=== PATIENT | female | born 1935 | race Caucasian/White ===

== ENCOUNTER → 2017-01-12 | Outpatient (CLI) | payer MEDICARE, OTHER | LOC: RAD 13:53 | DX: M25.511 Pain in right shoulder (principal); M79.621 Pain in right upper arm | CPT/HCPCS: 73030; 73060 ==

== ENCOUNTER 2021-02-13 22:52 | Inpatient (IN) | payer MEDICARE, OTHER ==
[~2021-02-13] VITALS: Ht 172.7 cm; Wt 96.2 kg
[~2021-02-13 22:52] MED LIST: AMMONIUM LACTA140 GM TP; ANTIVERT 12.512.5 MG PO; CEFDINIR300 MG PO; CYMBALTA60 MG PO; DURAGESIC 25 MCG1 EA TD; FOSAMAX70 MG PO; FUROSEMIDE20 MG PO; HYDROCHLOROTHIA25 MG PO; IRBESARTAN150 MG PO; IRBESARTAN300 MG PO; K-DUR TAB 20 M20 MEQ PO; KLONOPIN TAB 00.5 MG PO; KLONOPIN0.5 MG PO; LEVOTHYROXINE25 MCG PO; LIPITOR TAB 2020 MG PO; LOPRESSOR 25 MG25 MG PO; LOPRESSOR50 MG PO; MECLIZINE HCL25 MG PO; NORCO 10-325 T1 EACH PO; NORVASC 5 MG TAB5 MG PO; POLYOX WSR-3011 GM MC; PRIMIDONE50 MG PO; PROTONIX 40 MG40 M1 PO; TRAMADOL HCL50 MG PO; TYLENOL 500 MG500 MG PO; VOLTAREN ARTHRI20 GM TP; VOLTAREN100 GM TP; WARFARIN SODIUM3 MG PO; XALATAN OP SOL2.5 ML OU; ZOFRAN ODT 4 MG4 MG PO
[2021-02-14 00:24] LABS: HEMOGLOBIN 13.8 gm/dl (12.3-15.3); RED BLOOD COUNT 4.18 M/UL (4.00-5.10)
[2021-02-14 00:47] LABS: BUN/CREATININE RATIO 15 (0-10)
[2021-02-14] MEDS ORDERED: ICAPS MV TABLE1 EACH PO (05:09)
[2021-02-14] MEDS ORDERED: FERREX 150150 MG PO (05:11)
[2021-02-14] MEDS ORDERED: ANTACID SUSPEN355 M1 PO (05:14)
[2021-02-14] MEDS ORDERED: BISACODYL10 MG PR (05:15)
[2021-02-14] MEDS ORDERED: HYDROCODON-ACE1 EAC4 PO (05:16)
[2021-02-14 11:33] LABS: HEMOGLOBIN 13.8 gm/dl (12.3-15.3); RED BLOOD COUNT 4.15 M/UL (4.00-5.10); WHITE BLOOD COUNT 8.7 K/UL (4.5-11.0)
[2021-02-15 01:30] LABS: HEMOGLOBIN 13.9 gm/dl (12.3-15.3); RED BLOOD COUNT 4.25 M/UL (4.00-5.10); WHITE BLOOD COUNT 9.1 K/UL (4.5-11.0)
--- NOTE | 2021-02-15 07:43 | NUR ---
received call from dr. de los santos asking why heparin was discontinued within the 4 hour frame per surgery protocol. informed dr. tejada that when evening nurse received call patient is going to be pickup for surgery evening nurse discontinued heparin. read to him of the nursing communication ordered r/t heparin and received order that he will cancel surgery today.
--- NOTE | 2021-02-15 08:00 | NUR ---
informed family member who was on the floor of the cancelled surgery and will be reschedule tommorrow-acknowledged
--- NOTE | 2021-02-15 08:02 | NUR ---
received call from my watch manufacturing supervisor- karina tejada and informed of the episode that led to cancellation of the surgery today. she acknowledged
--- NOTE | 2021-02-15 14:51 | NUR ---
reported to dr. austin earlier of patient complaining of almendarez catheter and color of urine, dark and bloody looking. will order for u/a
--- NOTE | 2021-02-15 17:10 | NUR ---
notified dr. austin r/t ptthp and that heparin was stopped per heparin protocol, and ptthp will be redrawn per protocol- acknowledged
[2021-02-16 04:17] LABS: WHITE BLOOD COUNT 7.6 K/UL (4.5-11.0)
[2021-02-16 04:22] LABS: RED BLOOD COUNT 3.68 M/UL (4.00-5.10)
--- NOTE | 2021-02-16 10:22 | NUR ---
patient heart rate increase to 120's-140's and episode of 150's administered patient am dose of metroprolol 12.5mg.
--- NOTE | 2021-02-16 15:53 | NUR ---
Report given to admitting nurse at ICU
[2021-02-17 02:49] LABS: HEMOGLOBIN 12.8 gm/dl (12.3-15.3); RED BLOOD COUNT 3.9 M/UL (4.00-5.10)
[2021-02-17 02:59] LABS: WHITE BLOOD COUNT 10.1 K/UL (4.5-11.0)
[2021-02-18 02:54] LABS: WHITE BLOOD COUNT 12.2 K/UL (4.5-11.0)
[2021-02-18 02:58] LABS: HEMOGLOBIN 10.4 gm/dl (12.3-15.3); RED BLOOD COUNT 3.23 M/UL (4.00-5.10)
[2021-02-18 03:37] LABS: BUN/CREATININE RATIO 20 (0-10)
[2021-02-18 19:10] LABS: HEMOGLOBIN 9.6 gm/dl (12.3-15.3); RED BLOOD COUNT 2.93 M/UL (4.00-5.10); WHITE BLOOD COUNT 9.7 K/UL (4.5-11.0)
[2021-02-19 03:07] LABS: HEMOGLOBIN 8.9 gm/dl (12.3-15.3); RED BLOOD COUNT 2.75 M/UL (4.00-5.10); WHITE BLOOD COUNT 8.7 K/UL (4.5-11.0)
[2021-02-19 19:12] LABS: 25-HYDROXY, VITAMIN D-2 3.8 ng/mL (.)
[2021-02-20 03:58] LABS: RED BLOOD COUNT 2.8 M/UL (4.00-5.10); WHITE BLOOD COUNT 7.7 K/UL (4.5-11.0)
[2021-02-21 05:35] LABS: RED BLOOD COUNT 2.8 M/UL (4.00-5.10)
[2021-02-21 05:36] LABS: WHITE BLOOD COUNT 10.9 K/UL (4.5-11.0)
[2021-02-22 05:29] LABS: RED BLOOD COUNT 2.7 M/UL (4.00-5.10); WHITE BLOOD COUNT 11.5 K/UL (4.5-11.0)
[2021-02-23 05:05] LABS: HEMOGLOBIN 9.1 gm/dl (12.3-15.3); RED BLOOD COUNT 2.88 M/UL (4.00-5.10); WHITE BLOOD COUNT 12.2 K/UL (4.5-11.0)
[2021-02-24 07:49] LABS: HEMOGLOBIN 10.3 gm/dl (12.3-15.3); WHITE BLOOD COUNT 14.3 K/UL (4.5-11.0)
[2021-02-24 07:54] LABS: RED BLOOD COUNT 3.2 M/UL (4.00-5.10)
[2021-02-25 05:39] LABS: HEMOGLOBIN 9.4 gm/dl (12.3-15.3); RED BLOOD COUNT 2.97 M/UL (4.00-5.10); WHITE BLOOD COUNT 13.6 K/UL (4.5-11.0)
[2021-02-26 07:56] LABS: HEMOGLOBIN 9.5 gm/dl (12.3-15.3); RED BLOOD COUNT 3.04 M/UL (4.00-5.10); WHITE BLOOD COUNT 13.4 K/UL (4.5-11.0)
[2021-02-26] MEDS ORDERED: ELIQUIS2.5 MG PO (11:38)
[2021-02-26] MEDS ORDERED: MYCOSTATIN POWD15 GM TOP (11:39)
[2021-02-26] MEDS ORDERED: OXYCODONE HCL5 MG PO (11:40)
== END 2021-02-26 16:06 | DRG 521 ==
LOC: ER1 22:52 → CDU 02-14 01:27 → CCU 02-14 01:27 → M/S 02-14 01:27 → CCU 02-16 15:37 → M/S 02-22 17:34
PROVIDERS: Family Medicine; Internal Medicine; Internal Medicine Cardiovascular Disease; Internal Medicine Pulmonary Disease; Nurse Practitioner Family; Orthopaedic Surgery; Physician Assistant; Physician Assistant Medical; ADMIT Internal Medicine
PROC: B24BZZZ Ultrasonography of Heart with Aorta (ICD-10-PCS; 2021-02-14)
PROC: 0SRS0J9 Replacement of Left Hip Joint, Femoral Surface with Synthetic Substitute, Cemented, Open Approach (ICD-10-PCS; principal; 2021-02-16 14:45)
PROC: 0B978ZZ Drainage of Left Main Bronchus, Via Natural or Artificial Opening Endoscopic (ICD-10-PCS; 2021-02-19)
PROC: 0B938ZZ Drainage of Right Main Bronchus, Via Natural or Artificial Opening Endoscopic (ICD-10-PCS; 2021-02-19)
PROC: 5A09357 Assistance with Respiratory Ventilation, Less than 24 Consecutive Hours, Continuous Positive Airway Pressure (ICD-10-PCS; 2021-02-22)
DX: S72.012A Unspecified intracapsular fracture of left femur, initial encounter for closed fracture (principal); J96.22 Acute and chronic respiratory failure with hypercapnia; J96.21 Acute and chronic respiratory failure with hypoxia; J69.0 Pneumonitis due to inhalation of food and vomit; I48.20 Chronic atrial fibrillation, unspecified; I50.32 Chronic diastolic (congestive) heart failure; E66.2 Morbid (severe) obesity with alveolar hypoventilation; M81.0 Age-related osteoporosis without current pathological fracture; M19.90 Unspecified osteoarthritis, unspecified site; I11.0 Hypertensive heart disease with heart failure; R25.1 Tremor, unspecified; F41.9 Anxiety disorder, unspecified; F32.9 Major depressive disorder, single episode, unspecified; E78.5 Hyperlipidemia, unspecified; E03.9 Hypothyroidism, unspecified; Z20.822 Contact with and (suspected) exposure to COVID-19; W01.0XXA Fall on same level from slipping, tripping and stumbling without subsequent striking against object, initial encounter; G89.4 Chronic pain syndrome; J44.9 Chronic obstructive pulmonary disease, unspecified; B96.1 Klebsiella pneumoniae [K. pneumoniae] as the cause of diseases classified elsewhere; Y93.89 Activity, other specified; Y92.122 Bedroom in nursing home as the place of occurrence of the external cause; Z79.01 Long term (current) use of anticoagulants; Z91.81 History of falling; Z99.81 Dependence on supplemental oxygen; Z85.3 Personal history of malignant neoplasm of breast; Z90.710 Acquired absence of both cervix and uterus; Z68.30 Body mass index [BMI] 30.0-30.9, adult; Z88.5 Allergy status to narcotic agent; Z86.16 Personal history of COVID-19; Z79.890 Hormone replacement therapy; Z79.899 Other long term (current) drug therapy
CPT/HCPCS: ECHO; 36415; 36600; 71045; 71250; 72170; 73502; 73552; 73590; 80048; 80053; 81001; 82306; 82550; 82553; 82803; 83036; 83605; 83615; 83735; 83874; 83880; 84075; 84100; 84132; 84439; 84443; 84484; 84550; 85025; 85027; 85384; 85610; 85730; 86140; 86850; 86900; 86901; 87070; 87077; 87081; 87186; 87205; 92526; 92610; 93005; 93306; 94640; 94664; 94760; 97110; 97110-GP-CQ; 97162; 97166; 97530; 97530-GP-CQ; 99284; C1776; J0690; J1100; J1120; J1160; J1170; J1644; J1940; J2001; J2250; J2270; J2370; J2405; J2543; J2704; J2795; J2920; J3010; J7030; J7120; U0002

== ENCOUNTER 2021-08-21 03:57 | Inpatient (IN) | payer MEDICARE, OTHER ==
[~2021-08-21] VITALS: Ht 170.2 cm; Wt 72.0 kg
[~2021-08-21 03:57] MED LIST changes: +ANTACID SUSPEN355 M1 PO; +BISACODYL10 MG PR; +ELIQUIS2.5 MG PO; +FERREX 150150 MG PO; +HYDROCODON-ACE1 EAC4 PO; +ICAPS MV TABLE1 EACH PO; -IRBESARTAN150 MG PO; +IRBESARTAN75 MG PO; +MYCOSTATIN POWD15 GM TOP; +OXYCODONE HCL5 MG PO; +VOLTAREN ARTHRI20 GM TOP; -VOLTAREN100 GM TP
[2021-08-21 04:30] LABS: RED BLOOD COUNT 3.63 M/UL (4.00-5.10)
[2021-08-21 04:34] LABS: WHITE BLOOD COUNT 18.9 K/UL (4.5-11.0)
[2021-08-21 04:55] LABS: BUN/CREATININE RATIO 24 (0-10)
[2021-08-21] MEDS ORDERED: LACTULOSE10 GM/15 M PO (09:57)
[2021-08-21] MEDS ORDERED: ALBUTEROL2.5 MG/3 M INH (10:03)
[2021-08-21] MEDS ORDERED: TYLENOL 8 HOUR650 MG PO (10:08)
[2021-08-21] MEDS ORDERED: HYDROCODON-ACE1 EAC4 PO (10:13)
[2021-08-21] MEDS ORDERED: LEVOFLOXACIN500 MG PO (10:17)
[2021-08-21] MEDS ORDERED: IPRAT-ALBUT 0.5-3 ML INH (10:20)
[2021-08-21 12:33] LABS: HEMOGLOBIN 10.5 gm/dl (12.3-15.3)
[2021-08-21 20:26] LABS: HEMOGLOBIN 12.1 gm/dl (12.3-15.3)
[2021-08-22 04:35] LABS: RED BLOOD COUNT 4.02 M/UL (4.00-5.10); WHITE BLOOD COUNT 26.3 K/UL (4.5-11.0)
[2021-08-22 05:25] LABS: BUN/CREATININE RATIO 26 (0-10)
[2021-08-22 09:35] LABS: HEMOGLOBIN 13.1 gm/dl (12.3-15.3)
== END 2021-08-22 14:35 | disposition expired | DRG 871 ==
LOC: ER1 03:57 → CDU 06:19 → CCU 10:54
PROVIDERS: Family Medicine; Internal Medicine; Internal Medicine Critical Care Medicine; ADMIT Internal Medicine
PROC: 3E033XZ Introduction of Vasopressor into Peripheral Vein, Percutaneous Approach (ICD-10-PCS; principal; 2021-08-21)
PROC: 0BH17EZ Insertion of Endotracheal Airway into Trachea, Via Natural or Artificial Opening (ICD-10-PCS; 2021-08-21)
PROC: 5A1945Z Respiratory Ventilation, 24-96 Consecutive Hours (ICD-10-PCS; 2021-08-21)
DX: A41.9 Sepsis, unspecified organism (principal); R65.21 Severe sepsis with septic shock; J69.0 Pneumonitis due to inhalation of food and vomit; J18.9 Pneumonia, unspecified organism; J96.21 Acute and chronic respiratory failure with hypoxia; J96.22 Acute and chronic respiratory failure with hypercapnia; K72.00 Acute and subacute hepatic failure without coma; G93.41 Metabolic encephalopathy; K55.9 Vascular disorder of intestine, unspecified; K92.2 Gastrointestinal hemorrhage, unspecified; I13.0 Hypertensive heart and chronic kidney disease with heart failure and stage 1 through stage 4 chronic kidney disease, or unspecified chronic kidney disease; E87.2 Acidosis; I48.20 Chronic atrial fibrillation, unspecified; I50.32 Chronic diastolic (congestive) heart failure; Z99.11 Dependence on respirator [ventilator] status; Z51.5 Encounter for palliative care; Z66 Do not resuscitate; Z20.822 Contact with and (suspected) exposure to COVID-19; R57.1 Hypovolemic shock; E66.9 Obesity, unspecified; G47.30 Sleep apnea, unspecified; N18.30 Chronic kidney disease, stage 3 unspecified; S05.12XA Contusion of eyeball and orbital tissues, left eye, initial encounter; S05.11XA Contusion of eyeball and orbital tissues, right eye, initial encounter; Y04.8XXA Assault by other bodily force, initial encounter; R29.6 Repeated falls; I45.10 Unspecified right bundle-branch block; E11.65 Type 2 diabetes mellitus with hyperglycemia; E11.22 Type 2 diabetes mellitus with diabetic chronic kidney disease; R13.10 Dysphagia, unspecified; M81.0 Age-related osteoporosis without current pathological fracture; M19.90 Unspecified osteoarthritis, unspecified site; Z96.698 Presence of other orthopedic joint implants; F41.9 Anxiety disorder, unspecified; F11.10 Opioid abuse, uncomplicated; G89.4 Chronic pain syndrome; F32.A Depression, unspecified; E78.5 Hyperlipidemia, unspecified; G25.0 Essential tremor; E03.9 Hypothyroidism, unspecified; Z79.01 Long term (current) use of anticoagulants; Z90.49 Acquired absence of other specified parts of digestive tract; Z90.710 Acquired absence of both cervix and uterus; Z80.3 Family history of malignant neoplasm of breast; Z80.0 Family history of malignant neoplasm of digestive organs; Z88.8 Allergy status to other drugs, medicaments and biological substances; Z86.16 Personal history of COVID-19; Z79.4 Long term (current) use of insulin
CPT/HCPCS: 31500; 36415; 36600; 70450; 71045; 71250; 74018; 80053; 81001; 82272; 82550; 82553; 82803; 83605; 83735; 83874; 83880; 84439; 84443; 84484; 85014; 85018; 85025; 86850; 86900; 86901; 87040; 87070; 87081; 87205; 93005; 94002; 94003; 94760; 96374; 96375; 99284; 99285; C9113; J0171; J0330; J1720; J2060; J2250; J2370; J2543; J2930; J3010; J3370; J7030; J7070; J7120; P9047; U0002